=== PATIENT | male | born 1960 | race Caucasian/White ===

== ENCOUNTER 2021-05-23 20:53 | Emergency (ER) | payer BC ==
[2021-05-23] MEDS ORDERED: Sodium Chloride 0.9% 10 ML Syringe FLUSH PRN (21:41)
[2021-05-23] MEDS ORDERED: Ondansetron 4 MG/2 ML SDV IVPUSH ONE (21:41)
[2021-05-23] MEDS ORDERED: Ketorolac 30 MG/ML SDV IVPUSH ONE (21:41)
[2021-05-23] MEDS ORDERED: Sodium Chloride 0.9% 1,000 ML IV SCH (21:45)
[2021-05-23] MEDS ORDERED: Tamsulosin 0.4 MG Cap.ER PO ONE (22:52)
--- NOTE | 2021-05-23 23:32 | EDM.PDOC ---
ED HPI GENERAL MEDICAL PROBLEM - General Chief Complaint: Genitourinary Problem Stated Complaint: KIDNEY STONE Time Seen by Provider: 05/23/21 21:41 Source of Information: Reports: Patient History Limitations: Reports: No Limitations - History of Present Illness INITIAL COMMENTS - FREE TEXT/NARRATIVE: Michael is a 61-year-old male presenting to the ED with acute onset of left-sided flank pain that started earlier today. 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 The road is quite bumpy and every jarring moves seem to increase his flank pain. He started develop nausea and vomiting on the way back from the trip. He does have a history for nephrolithiasis and previously had a kidney stone passed 3 years ago. He tries to watch his diet fairly closely but does drink diet coke once or twice a week. He has had 3 episodes of emesis since the onset of his pain. Left Flank Pain Score (Numeric/FACES): 6 - Related Data Allergies Allergy/AdvReac Type Severity Reaction Status Date / Time bee venom protein (honey bee) Allergy Swelling Verified 05/23/21 22:19 Dairy Products Allergy Stomach Verified 05/23/21 22:19 Upset Sulfa (Sulfonamide Allergy Hives Verified 05/23/21 22:19 Antibiotics) Home Meds: Home Meds Losartan [Cozaar] 1 tab PO DAILY 05/23/21 [History] Simvastatin 1 tab PO DAILY 05/23/21 [History] Tamsulosin [Tamsulosin 24 Hr] 0.4 mg PO DAILY #14 cap.er 05/23/21 [Rx] Past Medical History HEENT History: Reports: Impaired Vision Cardiovascular History: Reports: High Cholesterol, Hypertension Gastrointestinal History: Reports: GERD Genitourinary History: Reports: Renal Calculus - Infectious Disease History Infectious Disease History: Reports: Chicken Pox - Past Surgical History HEENT Surgical History: Reports: Eye Surgery GI Surgical History: Reports: Hernia Repair/Other Other GI Surgeries/Procedures: mesh Musculoskeletal Surgical History: Reports: Other (See Below) Other Musculoskeletal Surgeries/Procedures:: repair of hamstring Social & Family History - Tobacco Use Tobacco Use Status *Q: Never Tobacco User - Caffeine Use Caffeine Use: Reports: Soda - Recreational Drug Use Recreational Drug Use: No ED ROS GENERAL - Review of Systems Review Of Systems: See Below Constitutional: Reports: No Symptoms HEENT: Reports: No Symptoms Respiratory: Reports: No Symptoms Cardiovascular: Reports: No Symptoms Endocrine: Reports: No Symptoms GI/Abdominal: Reports: Abdominal Pain (Left upper quadrant), Nausea, Vomiting : Reports: Flank Pain (Left flank pain, this worsens with jarring or movemen t.) Musculoskeletal: Reports: No Symptoms Skin: Reports: No Symptoms Neurological: Reports: No Symptoms Psychiatric: Reports: Anxiety Hematologic/Lymphatic: Reports: No Symptoms Immunologic: Reports: No Symptoms ED EXAM, RENAL/ - Physical Exam Exam: See Below Exam Limited By: No Limitations General Appearance: Alert, Anxious, Moderate Distress Eye Exam: Bilateral Eye: EOMI, PERRL Throat/Mouth: Normal Inspection, Normal Lips, Normal Oropharynx, Normal Voice, No Airway Compromise Head: Atraumatic, Normocephalic Neck: Normal Inspection, Supple Respiratory/Chest: No Respiratory Distress, Lungs Clear, Normal Breath Sounds, Chest Non-Tender Cardiovascular: Normal Peripheral Pulses, Regular Rate, Rhythm, No Murmur GI/Abdominal: Normal Bowel Sounds, Soft, Non-Tender Back Exam: Normal Inspection, Full Range of Motion. No: CVA Tenderness (R), CVA Tenderness (L) Extremities: Normal Inspection, Normal Range of Motion, Non-Tender, Normal Capillary Refill Neurological: Alert, Oriented, CN II-XII Intact, Normal Cognition, No Motor/Sensory Deficits Psychiatric: Normal Affect, Normal Mood Skin Exam: Warm, Dry, Intact, Normal Color Lymphatic: No Adenopathy Course - Vital Signs Last Recorded V/S: Last Vital Signs Temp 36.1 C 05/23/21 22:17 Pulse 65 05/23/21 22:17 Resp 22 H 05/23/21 22:17 BP 179/94 H 05/23/21 22:17 Pulse Ox 97 05/23/21 22:17 - Orders/Labs/Meds Orders: Active Orders 24 hr Category Date Time Status Abdomen Pelvis wo Cont [CT] Stat Exams 05/23/21 21:42 Taken Sodium Chloride 0.9% [Normal Saline] 1,000 ml Med 05/23/21 21:45 Active IV ASDIRECTED Sodium Chloride 0.9% [Saline Flush] Med 05/23/21 21:41 Active 10 ml FLUSH ASDIRECTED PRN Saline Lock Insert [OM.PC] Routine Oth 05/23/21 21:41 Ordered Medication Orders Sodium Chloride (Normal Saline) 1,000 mls @ 999 mls/hr IV ASDIRECTED DEBORAH Last Admin: 05/23/21 22:09 Dose: 999 mls/hr Documented by: BRADLEY Sodium Chloride (Sodium Chloride 0.9% 10 Ml Syringe) 10 ml FLUSH ASDIRECTED PRN PRN Reason: Keep Vein Open Labs: Laboratory Tests 05/23/21 05/23/21 05/23/21 Range/Units 21:49 21:49 21:52 WBC 11.7 H (4.5-11.0) K/uL RBC 5.04 (4.30-5.90) M/uL Hgb 15.3 H (12.0-15.0) g/dL Hct 43.2 (40.0-54.0) % MCV 86 (80-98) fL MCH 30 (27-31) pg MCHC 35 (32-36) % Plt Count 167 (150-400) K/uL Neut % (Auto) 87.1 H (36-66) % Lymph % (Auto) 5.9 L (24-44) % Dare % (Auto) 6.9 H (2-6) % Eos % (Auto) 0.0 L (2-4) % Baso % (Auto) 0.1 (0-1) % Sodium 138 L (140-148) mmol/L Potassium 4.6 (3.6-5.2) mmol/L Chloride 102 (100-108) mmol/L Carbon Dioxide 25 (21-32) mmol/L Anion Gap 15.6 H (5.0-14.0) mmol/L BUN 12 (7-18) mg/dL Creatinine 1.6 H (0.8-1.3) mg/dL Est Cr Clr Drug Dosing 45.90 mL/min Estimated GFR (MDRD) 44 L (>60) Glucose 156 H (74-106) mg/dL Calcium 8.8 (8.5-10.1) mg/dL Total Bilirubin 0.7 (0.2-1.0) mg/dL AST 31 (15-37) U/L ALT 55 (12-78) U/L Alkaline Phosphatase 76 (46-116) U/L Total Protein 7.5 (6.4-8.2) g/dL Albumin 4.2 (3.4-5.0) g/dL Globulin 3.3 (2.3-3.5) g/dL Albumin/Globulin Ratio 1.3 (1.2-2.2) Urine Color Yellow (YELLOW) Urine Appearance Clear (CLEAR) Urine pH 5.5 (5.0-8.0) Ur Specific [place] >= 1.030 (1.008-1.030) Urine Protein 100 H (NEGATIVE) mg/dL Urine Glucose (UA) Negative (NEGATIVE) mg/dL Urine Ketones Negative (NEGATIVE) mg/dL Urine Occult Blood Moderate H (NEGATIVE) Urine Nitrite Negative (NEGATIVE) Urine Bilirubin Negative (NEGATIVE) Urine Urobilinogen 0.2 (0.2-1.0) EU/dL Ur Leukocyte Esterase Negative (NEGATIVE) Urine RBC 5-10 H (0-5) Urine WBC 0-5 (0-5) Ur Epithelial Cells Not seen Amorphous Sediment Not seen Urine Bacteria Not seen Urine Mucus Not seen Meds: Medications Generic Name Dose Route Start Last Admin Trade Name Freq PRN Reason Stop Dose Admin Sodium Chloride 1,000 mls @ 999 mls/hr 05/23/21 21:45 05/23/21 22:09 Normal Saline IV 999 mls/hr ASDIRECTED DEBORAH Administration Sodium Chloride 10 ml 05/23/21 21:41 Sodium Chloride 0.9% 10 Ml Syringe FLUSH ASDIRECTED PRN Keep Vein Open Discontinued Medications Generic Name Dose Route Start Last Admin Trade Name Freq PRN Reason Stop Dose Admin Ketorolac Tromethamine 30 mg 05/23/21 21:41 05/23/21 22:07 Ketorolac 30 Mg/Ml Sdv IVPUSH 05/23/21 21:42 30 mg ONETIME ONE Administration Ondansetron HCl 4 mg 05/23/21 21:41 05/23/21 22:08 Ondansetron 4 Mg/2 Ml Sdv IVPUSH 05/23/21 21:42 4 mg ONETIME ONE Administration Tamsulosin HCl 0.4 mg 05/23/21 22:52 05/23/21 23:03 Tamsulosin 0.4 Mg Cap.Er PO 05/23/21 22:53 0.4 mg ONETIME ONE Administration - Radiology Interpretation Free Text/Narrative:: Reviewed the CT of the abdomen and pelvis without contrast showing a 5.5 mm stone in the distal left ureter causing hydroureter and hydronephrosis. There is a another nonobstructing stone in the left kidney. The stone appears to be just above the ureterovesicular junction. - Re-Assessments/Exams Free Text/Narrative Re-Assessment/Exam: 05/23/21 23:[address] of the abdomen and pelvis without contrast showing a 5.5 mm stone in the distal left ureter causing hydroureter and hydronephrosis. There is a another nonobstructing stone in the left kidney. The stone appears to be just above the ureterovesicular junction. The patient did receive Toradol 30 mg IV and Zofran 4 mg IV with improvement in his symptoms. In addition, after seeing the stone on the CT, the patient was also given Flomax 0.4 mg p.o. I reviewed the patient's labs showing a leukocyte count of 11.7, hemoglobin of 15.3, hematocrit of 43.2, and a platelet count of 167,000. The patient's comprehensive metabolic panel is significant for a sodium 138, potassium 4.6, chloride of 102, bicarbonate of 25, BUN of 12 with a creatinine of 1.6 and a glucose of 156. I am a bit concerned about the elevated creatinine of 1.6, however, I do not have a comparison as he has never been here before. Urinalysis was obtained showing 5-10 RBCs with 0-5 WBCs but no evidence for infection. My plan is to send the patient home with a prescription for Flomax once daily, Toradol 10 mg 4 times daily as needed for pain, and Zofran 4 mg p.o. every 8 hours as needed for nausea and vomiting. I encouraged him to drink 10 ounces of water every hour he is awake to help urine production. Indications return to ED were discussed with the patient and his . All questions were answered prior to discharge. Departure - Departure Time of Disposition: 23:27 Disposition: Home, Self-Care 01 Clinical Impression: Calcium ureterolithiasis, Renal colic on left side, Hydronephrosis of left kidney, Nephrolithiasis - Discharge Information Prescriptions: Tamsulosin [Tamsulosin 24 Hr] 0.4 mg PO DAILY #14 cap.er Instructions: Kidney Stones, [id number], Renal Colic, [id number], Hydronephrosis Referrals: PCP,None [Primary Care Provider] - Care Plan Goals: I would like you to drink 10 ounces of water every hour you are awake for the next 14 days. This will increase your urine production and help keep the ureter distended while it heals. I anticipate that it will probably take a day or 2 for you to pass the stone across the ureterovesicular junction. The fluids will certainly help this. In addition we are putting you on Flomax 1 tablet daily which should help relax the ureter as well. I am providing you with a prescription for Zofran for nausea and Toradol for pain control. These are both available in the [facility] machine in the lobby. Unfortunately the Flomax is not available in the [facility] machine so a printed prescription is provided to you to fill at a pharmacy tomorrow when they reopen. Return to the ED should you develop significant worsening of your pain, fever or chills. Sepsis Event Note (ED) - Evaluation Sepsis Screening Result: No Definite Risk - Focused Exam Vital Signs: Vital Signs Temp Pulse Resp BP Pulse Ox 05/23/21 22:17 36.1 C 65 22 H 179/94 H 97 05/23/21 21:32 36.1 C 65 22 H 179/94 H 97 - Problem List & Annotations (1) Calcium ureterolithiasis SNOMED Code(s): 80177142 Code(s): N20.1 - CALCULUS OF URETER Status: Acute Priority: High Current Visit: Yes (2) Hydronephrosis of left kidney SNOMED Code(s): 56198322 Code(s): N13.30 - UNSPECIFIED HYDRONEPHROSIS Status: Acute Priority: High Current Visit: Yes (3) Nephrolithiasis SNOMED Code(s): 96491782 Code(s): N20.0 - CALCULUS OF KIDNEY Status: Acute Priority: High Current Visit: Yes (4) Renal colic on left side SNOMED Code(s): 3123207 Code(s): N23 - UNSPECIFIED RENAL COLIC Status: Acute Priority: High Current Visit: Yes - Problem List Review Problem List Initiated/Reviewed/Updated: Yes - My Orders Last 24 Hours: My Active Orders 05/23/21 21:41 Sodium Chloride 0.9% [Saline Flush] 10 ml FLUSH ASDIRECTED PRN Saline Lock Insert [OM.PC] Routine 05/23/21 21:42 Abdomen Pelvis wo Cont [CT] Stat 05/23/21 21:45 Sodium Chloride 0.9% [Normal Saline] 1,000 ml IV ASDIRECTED - Assessment/Plan Last 24 Hours: My Active Orders 05/23/21 21:41 Sodium Chloride 0.9% [Saline Flush] 10 ml FLUSH ASDIRECTED PRN Saline Lock Insert [OM.PC] Routine 05/23/21 21:42 Abdomen Pelvis wo Cont [CT] Stat 05/23/21 21:45 Sodium Chloride 0.9% [Normal Saline] 1,000 ml IV ASDIRECTED
--- NOTE | 2021-05-23 23:34 | CRLCT ---
For Patients: As a result of the Century Cures Act, medical imaging exams and procedure reports are released immediately into your electronic medical record. You may view this report before your referring provider. If you have questions, please contact your health care provider. HISTORY: Left flank pain. TECHNIQUE: Noncontrast CT abdomen and pelvis. COMPARISON: No prior. FINDINGS: There is perinephric stranding present on the left. There are multiple intrarenal calculi on the left. Mild left-sided hydronephrosis present. There is left-sided hydroureter. A 5 mm calculus is present at the ureterovesical junction. There are a few punctate intrarenal calculi on the right. Mild perinephric stranding on the right. No right-sided hydronephrosis. No right ureteral calculus. Urinary bladder is nondistended. Prostate is enlarged. - There is no focal liver parenchymal abnormality. Gallbladder does not appear excessively distended. Spleen size mildly prominent. Adrenal glands normal. No focal pancreatic abnormality. No small bowel obstruction. No appendicitis. There is colonic diverticulosis without acute diverticulitis. - No abdominal aortic aneurysm. - No fluid collection or free air. - Small bilateral fat containing inguinal hernias. - No infiltrate within the lung bases nor pleural effusion. - No acute fracture. There are likely several vertebral body hemangiomata. IMPRESSION: 1. On the left, there is hydronephrosis and hydroureter secondary to a 5 mm calculus at the ureterovesical junction. 2. Additional intrarenal calculi present bilaterally. 3. Enlarged prostate. 4. Colonic diverticulosis without diverticulitis. Dictated by Rufino Castellanos MD @ 05/23/2021 11:32:16 PM Please note that all CT scans at this facility use dose modulation, iterative reconstruction, and/or weight-based dosing when appropriate to reduce radiation dose to as low as reasonably achievable. Dictated by: Rufino Castellanos MD @ 05/23/2021 23:32:21 (Electronically Signed)
[2021-05-23] MEDS ORDERED: Famotidine 20 MG Tab PO ONE (23:57)
== END 2021-05-24 00:03 | disposition home or self-care (01) ==
LOC: JP.ED 20:53
DX: N13.2 Hydronephrosis with renal and ureteral calculous obstruction (principal); E78.00 Pure hypercholesterolemia, unspecified; I10 Essential (primary) hypertension; Z79.899 Other long term (current) drug therapy; Z91.030 Bee allergy status; Z91.011 Allergy to milk products; Z88.2 Allergy status to sulfonamides
CPT/HCPCS: 36415; 74176; 80053; 81001; 85025; 96374; 96375; 99284; A9270; J1885; J2405; J7030